=== PATIENT | female | born 1950 | race Caucasian/White ===

== ENCOUNTER 2025-06-25 08:27 | Outpatient (CLI) | payer MEDICARE, OTHER | END 2025-06-25 08:28 | disposition home or self-care (01) | LOC: NM 08:27 | PROVIDERS: ATTEND Otolaryngology Otolaryngic Allergy | DX: E83.52 Hypercalcemia (principal); E04.2 Nontoxic multinodular goiter; R91.8 Other nonspecific abnormal finding of lung field | CPT/HCPCS: 78072; A9500 ==